=== PATIENT | male | born 1950 | race Caucasian/White ===

== ENCOUNTER 2023-01-10 14:12 | Day surgery (SDC) | payer MEDICARE ==
[2023-01-10] MEDS ORDERED: Depo-Medrol 40 MG/ML IM ONE (14:13)
[2023-01-10] MEDS ORDERED: BUPIVACAINE 0.5% VIAL IJ ONE (14:13)
[2023-01-10] MEDS ORDERED: LIDOCAINE HCL 1% 50 MG/5 ML VL PF IJ ONE (14:13)
--- NOTE | 2023-01-10 16:38 | XRAY ---
Indication: Left shoulder and subacromial bursa injection. Intraoperative fluoroscopy provided for 35 seconds. 2 digital spot images submitted for interpretation demonstrates needle tip projecting over the left glenohumeral joint superiorly. Second needle tip subacromial. Small amount of contrast injected for both needle tip placement. Correlate with intraoperative findings/report.
--- NOTE | 2023-01-10 16:50 | XRAY ---
35 seconds of fluoroscopy was used in surgery for a left intra-articular shoulder and subacromial bursa injection.
== END 2023-01-10 16:05 | disposition home or self-care (01) ==
LOC: SDC-PAIN 14:12
PROVIDERS: ATTEND Psychiatry & Neurology Pain Medicine
DX: M19.012 Primary osteoarthritis, left shoulder (principal); M75.52 Bursitis of left shoulder; Z79.899 Other long term (current) drug therapy
CPT/HCPCS: 20610; 73030; 77002; J1030; J2001; Q9966

== ENCOUNTER 2024-07-23 11:48 | Day surgery (SDC) | payer MEDICARE ==
[2024-07-23] MEDS ORDERED: dexAMETHasone sodium phosphate IJ ONE (11:49)
[2024-07-23] MEDS ORDERED: LIDOCAINE HCL 2% 100 MG/5 ML IJ ONE (11:49)
[2024-07-23] MEDS ORDERED: propofoL IV ONE (14:17)
--- NOTE | 2024-07-23 16:30 | XRAY ---
Indication: Left C2-C4 MBB. Intraoperative fluoroscopy provided for 15 seconds. 2 digital spot image submitted for interpretation demonstrates posterior needle tips projecting over expected left C2-C4 nerve roots. Correlate with intraoperative findings/report.
--- NOTE | 2024-07-23 16:43 | XRAY ---
15 seconds of fluoroscopy was used in surgery for a left C2-C4 MBB.
== END 2024-07-23 14:45 | disposition home or self-care (01) ==
LOC: SDC-PAIN 11:48
PROVIDERS: ATTEND Psychiatry & Neurology Pain Medicine
DX: M47.812 Spondylosis without myelopathy or radiculopathy, cervical region (principal)
CPT/HCPCS: 64490; 64491; 72040; 77002; J1100; J2704

== ENCOUNTER 2024-08-27 09:56 | Day surgery (SDC) | payer MEDICARE ==
[2024-08-27] MEDS ORDERED: BUPIVACAINE 0.5% VIAL IJ ONE (09:57)
[2024-08-27] MEDS ORDERED: dexAMETHasone sodium phosphate IJ ONE (09:57)
[2024-08-27] MEDS ORDERED: propofoL IV ONE (12:20)
--- NOTE | 2024-08-27 15:07 | XRAY ---
Indication: Left C2-C4 MBB. Intraoperative fluoroscopy provided for 14 seconds. 2 digital spot image submitted for interpretation demonstrates posterior needle tips projecting over expected left C2-C4 nerve roots. Correlate with intraoperative findings/report.
--- NOTE | 2024-08-27 15:35 | XRAY ---
14 seconds of fluoroscopy was used in surgery for a left C2-C4 MBB.
== END 2024-08-27 12:51 | disposition home or self-care (01) ==
LOC: SDC-PAIN 09:56
PROVIDERS: ATTEND Psychiatry & Neurology Pain Medicine
DX: M47.812 Spondylosis without myelopathy or radiculopathy, cervical region (principal)
CPT/HCPCS: 64490; 64491; 72040; 77002; J1100; J2704

== ENCOUNTER → 2024-09-10 | Day surgery (SDC) | payer MEDICARE ==
[~2024-09-10] MED LIST: BUPIVACAINE 0.5% VIAL IJ ONE; Depo-Medrol 40 MG/ML IM ONE; LIDOCAINE HCL 1% AMPUL 5 ML IJ ONE; Lactated Ringers 500 ML IV ONE; propofoL IV ONE
--- NOTE | 2024-09-10 16:29 | XRAY ---
Indication: Left C2-C4 RFA. Intraoperative fluoroscopy provided for 18 seconds. 4 digital spot image submitted for interpretation demonstrates posterior needle tips projecting over expected left C2-C4 nerve roots. Correlate with intraoperative findings/report.
--- NOTE | 2024-09-10 17:09 | XRAY ---
18 seconds of fluoroscopy was used in surgery for a left C2-C4 RFA.
== END ==
LOC: SDC-PAIN 13:17
PROVIDERS: ATTEND Psychiatry & Neurology Pain Medicine
DX: M47.812 Spondylosis without myelopathy or radiculopathy, cervical region (principal)
CPT/HCPCS: 64633; 64634; 72040; 77002; 99100; J2704